=== PATIENT | female | born 1995 | race African-American/Black ===

== ENCOUNTER 2016-11-04 05:49 | Emergency (ER) | payer OTHER ==
[~2016-11-04] VITALS: Ht 167.6 cm; Wt 70.5 kg
[2016-11-04 05:51] VITALS: Ht 167.6 cm; Wt 70.5 kg
[2016-11-04] MEDS ORDERED: predniSONE 20 MG TAB PO STA (06:27)
[2016-11-04] MEDS ORDERED: ALBUTEROL 0.083% (NEB) 2.5 MG/3 ML AMP NEB STA (06:27)
[2016-11-04] MEDS ORDERED: IPRATROPIUM (NEB) 0.5 MG/2.5 ML AMP NEB STA (06:27)
[2016-11-04] MEDS ORDERED: AZIT250T94 PO (07:09)
[2016-11-04] MEDS ORDERED: ALBU8.5H3 INH (07:10)
[2016-11-04] MEDS ORDERED: PRED20TA PO (07:10)
--- NOTE | 2016-11-04 07:28 | ERD ---
ER Documentation Chief Complaint Date/Time DATE: 11/04/16 TIME: 07:28 Chief Complaint cough x 3 weeks HPI Is a 21-year-old female who presents to the emergency department today planing of cough for the past 3 weeks. Patient states she is also had some sinus congestion. States that she has tried Mucinex and Sudafed with no improvement in symptoms. States that she had asthma as a child. Denies any fevers or chills. ROS All systems reviewed and are negative except as per history of present illness. Medications Home Meds Active Scripts Prednisone* (Prednisone*) 20 Mg Tab, 40 MG PO DAILY for 4 Days, TAB Prov:DESHAWN ELAM PA-C 11/04/16 Albuterol Sulfate* (Proair HFA*) 8.5 Gm Hfa.aer.ad, 2 PUFF INH Q4, #1 INHALER Prov:DESHAWN ELAM PA-C 11/04/16 Azithromycin* (Zithromax*) 250 Mg Tablet, 250 MG PO .ZPACK DIRECTED, #6 TAB TAKE 500 MG (2 TABS) THE FIRST DAY THEN 250 MG (1 TAB) DAYS 2-5 Prov:DESHAWN ELAM PA-C 11/04/16 Allergies Allergies: Coded Allergies: Penicillins (Verified Allergy, Unknown, 11/04/16) amoxicillin (Verified Allergy, Unknown, 11/04/16) PMhx/Soc Medical and Surgical Hx: pt denies Surgical Hx Hx Respiratory Disorders: Yes (childhood asthma) Hx Substance Use: Yes (marijuana) Hx Tobacco Use: No Smoking Status: Current every day smoker Physical Exam Vitals Vital Signs Date Time Temp Pulse Resp B/P Pulse Ox O2 Delivery O2 Flow Rate FiO2 11/04/16 06:36 81 22 96 21 11/04/16 05:51 98.5 94 20 114/87 99 Physical Exam Const: NAD Head: Atraumatic Eyes: Normal Conjunctiva ENT: Normal External Ears, Nose and Mouth. Neck: Full range of motion..~ No meningismus. Resp: Coarse breath sounds bilaterally in all lung [place]. Cardio: Regular rate and rhythm, no murmurs Abd: Soft, non tender, non distended. Normal bowel sounds Skin: No petechiae or rashes Neur: Awake and alert Psych: Normal Mood and Affect Results 24 hrs Current Medications Medications (Trade) Dose Ordered Sig/Landon Route PRN Reason Start Time Stop Time Status Last Admin Dose Admin Albuterol (Proventil 0.083% (Neb)) 5 mg ONCE STAT NEB 11/04/16 06:27 11/04/16 06:29 DC 11/04/16 06:32 Ipratropium [place] (Atrovent 0.02% (Neb)) 0.5 mg ONCE STAT NEB 11/04/16 06:27 11/04/16 06:29 DC 11/04/16 06:32 Prednisone (Prednisone) 60 mg ONCE STAT PO 11/04/16 06:27 11/04/16 06:29 DC 11/04/16 06:40 Procedures/MDM This 21-year-old female who presents the emergency department today complaining of cough and sinus congestion for the past 3 weeks with no improvement in over- the-counter medications. On patient's physical exam she had diffuse coarse breath sounds bilaterally in all lung [place]. I did give the patient a reading treatment and prednisone and symptoms improved. Patient is afebrile and otherwise well-appearing. Her oxygen saturation 99%. Do not feel that she requires a chest x-ray. Low suspicion for pneumonia, PE, abscess, pleural effusion. Patient symptoms at this time is consistent with bronchitis versus viral URI. Patient will be discharge home with prednisone, azithromycin, ProAir air. At this time the patient is stable for discharge and outpatient management. Patient should follow up with their PCP in the next 1-2 days. They may return to the emergency department sooner for any persistent or worsening of symptoms. Patient understood and agreed with the plan. Departure Diagnosis: Primary Impression: Cough Condition: Fair Patient Instructions: What Is Bronchitis? Referrals: [facility] YOU HAVE RECEIVED A MEDICAL SCREENING EXAM AND THE RESULTS INDICATE THAT YOU DO NOT HAVE A CONDITION THAT REQUIRES URGENT TREATMENT IN THE EMERGENCY DEPARTMENT. FURTHER EVALUATION AND TREATMENT OF YOUR CONDITION CAN WAIT UNTIL YOU ARE SEEN IN YOUR DOCTORS OFFICE WITHIN THE NEXT 1-2 DAYS. IT IS YOUR RESPONSIBILITY TO MAKE AN APPOINTMENT FOR FOLOW-UP CARE. IF YOU HAVE A PRIMARY DOCTOR --you should call your primary doctor and schedule an appointment IF YOU DO NOT HAVE A PRIMARY DOCTOR YOU CAN CALL OUR PHYSICIAN REFERRAL HOTLINE AT IF YOU CAN NOT AFFORD TO SEE A PHYSICIAN YOU CAN CHOSE FROM THE FOLLOWING [facility] [address] [facility] [address] [facility] [place] [address] [facility] [facility] [address] [facility] [address] [facility] [address] [facility]. [facility] [address] Additional Instructions: Call your primary care doctor TOMORROW for an appointment during the next 1-2 days.See the doctor sooner or return here if your condition worsens before your appointment time. Take antibiotics as prescribed Take all other medications as prescribed DESHAWN ELAM PA-C Nov 04, 2016 07:28
== END 2016-11-04 07:49 | disposition home or self-care (01) ==
LOC: FTE 05:49
DX: R05 Cough (principal); J45.909 Unspecified asthma, uncomplicated; F17.210 Nicotine dependence, cigarettes, uncomplicated
CPT/HCPCS: 94664; 99284; J7512